=== PATIENT | female | born 1975 | race Two or more races ===

== ENCOUNTER 2023-02-02 08:05 | Emergency (ER) | payer SELFPAY | END 2023-02-02 09:48 | disposition home or self-care (01) | LOC: JP.ED 08:05 | DX: L24.7 Irritant contact dermatitis due to plants, except food (principal) | CPT/HCPCS: 99282 ==

== ENCOUNTER 2023-03-01 07:49 | Emergency (ER) | payer SELFPAY | END 2023-03-01 08:30 | disposition home or self-care (01) | LOC: JP.ED 07:49 | DX: B86 Scabies (principal); L50.9 Urticaria, unspecified | CPT/HCPCS: 99282; 99283 ==

== ENCOUNTER 2023-09-27 16:50 | Emergency (ER) | payer SELFPAY ==
[2023-09-27] MEDS: Ketorolac 30 MG/ML SDV IM ONE (17:55)
== END 2023-09-27 20:41 | disposition home or self-care (01) ==
LOC: JP.ED 16:50
DX: M25.512 Pain in left shoulder (principal); Z86.16 Personal history of COVID-19
CPT/HCPCS: 73030; 96372; 99283; J1885

== ENCOUNTER 2024-02-17 12:55 | Emergency (ER) | payer SELFPAY ==
[2024-02-17 13:56] LABS: APPEARANCE,URINE SLIGHTLY CLOUDY (CLEAR); BILIRUBIN,URINE NEGATIVE (NEGATIVE); COLOR,URINE YELLOW (YELLOW); GLUCOSE,URINE NEGATIVE (NEGATIVE); KETONES,URINE NEGATIVE (NEGATIVE); LEUKOCYTE ESTERASE,URINE NEGATIVE (NEGATIVE); NITRITE,URINE NEGATIVE (NEGATIVE); OCCULT BLOOD,URINE MODERATE (NEGATIVE); PH,URINE 6.5 (5.0-8.0); PROTEIN,URINE NEGATIVE (NEGATIVE); UROBILINOGEN,URINE 0.2 EU/dL (0.2-1.0)
[2024-02-17 14:09] LABS: AMORPHOUS SEDIMENT,URINE NOT SEEN; BACTERIA,URINE FEW; EPITHELIAL CELLS,URINE MANY; MUCUS,URINE FEW; RBC,URINE 20-30 (0-5); WBC,URINE 0-5 (0-5)
== END 2024-02-17 15:14 | disposition home or self-care (01) ==
LOC: JP.ED 12:55
DX: N39.0 Urinary tract infection, site not specified (principal)
CPT/HCPCS: 81001; 87086; 99283; 99284

== ENCOUNTER 2024-04-28 04:07 | Emergency (ER) | payer SELFPAY ==
[2024-04-28] MEDS: Ketorolac 30 MG/ML SDV IM ONE (04:54)
== END 2024-04-28 05:15 | disposition home or self-care (01) ==
LOC: JP.ED 04:07
DX: M54.6 Pain in thoracic spine (principal); Z86.16 Personal history of COVID-19; Z88.5 Allergy status to narcotic agent; Z88.8 Allergy status to other drugs, medicaments and biological substances
CPT/HCPCS: 71046; 96372; 99284; J1885

== ENCOUNTER 2024-07-13 13:33 | Emergency (ER) | payer SELFPAY ==
[2024-07-13 16:06] LABS: APPEARANCE,URINE CLEAR (CLEAR); BILIRUBIN,URINE NEGATIVE (NEGATIVE); COLOR,URINE YELLOW (YELLOW); GLUCOSE,URINE NEGATIVE (NEGATIVE); KETONES,URINE NEGATIVE (NEGATIVE); LEUKOCYTE ESTERASE,URINE NEGATIVE (NEGATIVE); NITRITE,URINE NEGATIVE (NEGATIVE); OCCULT BLOOD,URINE NEGATIVE (NEGATIVE); PROTEIN,URINE NEGATIVE (NEGATIVE); UROBILINOGEN,URINE 0.2 EU/dL (0.2-1.0)
[2024-07-13 16:25] LABS: AMORPHOUS SEDIMENT,URINE NOT SEEN; BACTERIA,URINE FEW; EPITHELIAL CELLS,URINE RARE; MUCUS,URINE RARE; RBC,URINE 0-5 (0-5); WBC,URINE 0-5 (0-5)
== END 2024-07-13 19:09 | disposition home or self-care (01) ==
LOC: JP.ED 13:33
DX: N93.9 Abnormal uterine and vaginal bleeding, unspecified (principal); Z88.5 Allergy status to narcotic agent; Z88.8 Allergy status to other drugs, medicaments and biological substances
CPT/HCPCS: 76830; 81001; 81025; 99284